=== PATIENT | male | born 1980 | race African-American/Black ===

== ENCOUNTER 2016-07-19 12:14 | Emergency (ER) | payer OTHER ==
[2016-07-19 12:25] VITALS: BP 140/72
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
== END 2016-07-19 13:35 | disposition home or self-care (01) ==
LOC: UCEAST 12:14
DX: H10.9 Unspecified conjunctivitis (principal); R60.9 Edema, unspecified; R19.7 Diarrhea, unspecified; F17.210 Nicotine dependence, cigarettes, uncomplicated
CPT/HCPCS: 93005; 99212; G0463

== ENCOUNTER 2017-05-11 11:44 | Emergency (ER) | payer OTHER ==
[2017-05-11 13:14] VITALS: BP 150/79
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
== END 2017-05-11 13:37 | disposition home or self-care (01) ==
LOC: UCEAST 11:44
DX: M79.1 Myalgia (principal); R53.83 Other fatigue; Z20.828 Contact with and (suspected) exposure to other viral communicable diseases; Z71.6 Tobacco abuse counseling; F17.210 Nicotine dependence, cigarettes, uncomplicated
CPT/HCPCS: 87502; 99212; G0463

== ENCOUNTER 2018-09-01 16:28 | Emergency (ER) | payer MEDICAID, OTHER ==
--- OUTSIDE RECORDS SUMMARY | 2018-09-01 18:59 | XMS REPORT | Continuity of Care Document ---
:1980 External Reference #:[id number] Author Name Navin Ovalles M.D. Address [address] [facility] [address] [place] [address] Care Team Providers Name Role Phone HCP/LW on file Primary Care Physician Unavailable Payers Date Identification Numbers Payment Provider Subscriber Expires: 2015 Policy Number: [id number] Medicaid Phillip Charles Group Name: Active Medicaid [address] [facility] PayID: [id number] [place] [address] Expires: 2018 Policy Number: [id number] Medicaid Phillip Charles PayID: [id number] [address] [place] [address] Effective: 2018 Policy Number: [id number] [facility] Phillip Charles PayID: [id number] [address] [place] [address] Advance Directives Description No Information Available Problems Active Problems Provider Date Opioid dependence Navin Ovalles M.D. Onset: 03/03/2014 Dysthymia Navin Ovalles M.D. Onset: 03/03/2014 Anxiety state Navin Ovalles M.D. Onset: 03/03/2014 Opioid dependence, uncomplicated Navin Ovalles M.D. Onset: 01/23/2015 Dysthymic disorder Navin Ovalles M.D. Onset: 01/23/2015 Bipolar disorder Navin Ovalles M.D. Onset: 01/23/2017 Low back pain Navin Ovalles M.D. 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 w/ hope of getting FT employment w/ them in the future Tobacco Use Reviewed: current cigarette 1/2 ppd; at peak 02/08/18 smoker smoked ~1.5ppd Smoking Status Reviewed: current cigarette 1/2 ppd; at peak 02/08/18 smoker smoked ~1.5ppd ETOH Use Denies alcohol use Recreational Drug Use Denies Drug Use Exercise Type/Frequency Exercises rarely Seat Belt/Car Seat Seat Belt Use - Yes Currently Active Patient is currently sexually active Age 1st Or[place]inda 16 Years Old Additional Info Sexual preference is women Allergies, Adverse Reactions, Alerts Description No Known Drug Allergies Medications Active Medications SIG Qnty Indications Ordering Provider Date Gabapentin Take 1 And 1/2 120tabs F41.9 Navin Ovalles, 05/25/2018 800mg Tablets By Mouth M.D. Tablets In The Morning And Evening And 1 Tab In Mid Day For Anxiety G89.4 M54.5 Suboxone 1 by mouth 2x/day; 60units F11.20 Navin Ovalles, 10/12/2017 8-2mg Film suboxone prescriber# Latrice [id number]; rx due 08/08/18 Nicotine Polacrilex chew 1 piece every 200units F17.210 Navin Ovalles, 08/03/2017 1-2hrs for 6wks then M.D. 4mg Gum every 2 to 4 hours x3wks then q4-8h x3wks then d/c; use at least 9/d the 1st 6wks History Medications Azithromycin 2 tabs day one and 6tabs Navin Ovalles, 03/25/2018 - 250mg 1 tab days 2-5 M.D. 03/31/2018 Tablets Symbicort 2 puffs 2x/day; 1sample J20.9 Navin Ovalles, 03/10/2018 - gargle after use; M.D. 03/25/2018 160-4.5mcg/Act for cough Aerosol PT For Low Back Pain please evaluate M54.5 Navin Ovalles, 10/13/2017 - W/ R Sided Radiculo and Latrice kirkland 12/07/2017 instruct in hep, modalities as needed; (see MRI from 09/25/17) M54.16 Methylprednisolone take as 1pack M54.5 Silcokhurram, 10/13/2017 - 4mg TBPK directed; for Latrice Holden 10/19/2017 back pain Buprenorphine 1 tablet 60tabs F11.20 Josr, 10/11/2017 - HCL-Naloxone HCL dissolved in Latrice Holden 10/12/2017 8-2mg Tablets mouth 2x/day; Sub prescriber# [id number] Methylprednisolone take as directed 1pack M54.5 Josr, 09/18/2017 - 4mg TBPK Latrice Holden 09/24/2017 M54.16 Gabapentin 1 by mouth three 90tabs F41.9 Navin Ovalles 09/11/2017 - 800mg times a day; for M.DMukesh 05/25/2018 Tablets anxiety and pain G89.4 M54.5 Baclofen 1 tab by mouth up to 30tabs M54.5 Josr, 08/10/2017 - 10mg 3x/day, as needed Latrice Holden 09/18/2017 Tablets for muscle spasms in back; may inc to 2 tabs 3x/day if needed starting on day 4 PT For Low Back please evaluate and M54.5 Josr, 08/10/2017 - Pain treat, modalities as Latrice Holden 10/12/2017 needed, instruct in hep Diclofenac Sodium take one by mouth up 30tabs M25.50 Josr, 08/03/2017 - ER to once/day, as Latrice Holden 09/11/2017 100mg Tablets ER needed, for joint 24HR pains; take with food Latuda 1 tablet daily with 30tabs F31.81 Andreeacokhurram, 04/28/2017 - 40mg Tablets a meal (at least 350 Latrice Holden 05/28/2017 calories); for bipolar depression Latuda 1 tablet daily with F31.81 Silcoff, 03/10/2017 - 20mg Tablets a meal (at least 350 Latrice Holden 04/28/2017 calories); for bipolar depression Quetiapine Fumarate 1 by mouth before 60tabs F31.81 Josr, 01/28/2017 - bed on 1st day then Latrice Holden 02/19/2017 50mg Tablets increase to 2 pills every night; for mood Latuda 1 tablet daily with 30tabs F31.81 Silcoff, 01/23/2017 - 20mg Tablets a meal (at least 350 Latrice Holden 01/28/2017 calories); for bipolar depression Latuda 1 tablet daily with 30tabs F34.1 Silcoff, 01/02/2017 - 20mg Tablets a meal (at least 350 Latrice Holden 01/03/2017 calories); for bipolar depression Valproic Acid 1 by mouth 2x/d x1wk 120caps F34.1 Andreeacokhurram, 12/03/2016 - 250mg then 1 by mouth Latrice Holden 12/23/2016 Capsules every morning and 2 qevening x1wk then 2 by mouth twice a day; for mood stabilization Compression use daily; put on in 2Pair I87.2 Josr, 12/03/2016 - Stockings 20-30 mm in the morning and Latirce Holden 05/28/2017 HG off at bedtime; Knee High please also measure for the stockings. Fluocinonide apply to affected 60gm R21 Silcokhurram, 10/27/2016 - 0.05% areas on lower legs Latrice Holden 05/28/2017 Cream up to 2x/day as needed; for itchy rash Furosemide 1 by mouth in the 30tabs I87.2 Silcokhurram, 10/27/2016 - 20mg morning if needed Latrice Holden 05/28/2017 Tablets for leg swelling Valproic Acid 1 by mouth 2x/d x1wk 120caps F34.1 Silcokhurram, 07/28/2016 - 250mg then 1 by mouth Latrice Holden 08/26/2016 Capsules every morning and 2 qevening x1wk then 2 by mouth twice a day; for mood stabilization Omeprazole take one capsule by 30caps R12 Josr, 06/27/2016 - 20mg mouth every day for Latrice Holden 02/07/2018 Sejal PULIDO acid reflux/heartburn K21.9 Suboxone 1 by mouth 2x/day; 60units F11.20 Josr, 06/03/2016 - 8-2mg Film may fill rx on Latrice Holden 10/11/2017 10/10/17; prescriber# [id number] Escitalopram Oxalate take 1 tablet by 30tabs F34.1 Josr, 05/02/2016 - mouth once daily Latrice Holden 06/21/2017 20mg Tablets for mood F31.81 Escitalopram Oxalate 1.5 tablets by 45tabs F34.1 Navin Ovalles, 2015 - mouth every day M.D. 05/02/2016 10mg Tablets for mood Diclofenac Sodium take one tablet Daniel Noel 2016 - 75mg by mouth twice a M.D. 10/26/[address] day as needed for joint pains Famotidine 1 by mouth every 30tabs R12 Navin Ovalles, 01/25/2016 - 40mg Tablets night for M.D. 06/27/2016 heartburn K21.9 Escitalopram Oxalate 1 by mouth every 30tabs F34.1 Navin Ovalles, 2015 - day for mood M.D. 04/04/2016 10mg Tablets Escitalopram Oxalate 1/2 by mouth 15tabs F34.1 Navin Ovalles, 2015 - every day; for M.D. 01/25/2016 10mg Tablets mood Bupropion HCL ER (XL) take 1 tablet by 30tabs F34.1 Navin Ovalles, 10/21 - mouth every M.D. 05/28/2017 300mg Tablets ER 24HR morning F41.9 F31.81 Escitalopram Oxalate 1/2 by mouth 30tabs F34.1 Navin Ovalles, 2015 - every day for 1 M.D. 11/20/2015 10mg Tablets week then 1 tablet daily; for mood Bupropion HCL ER (XL) take 2 tablets 60tabs F34.1 Navin Ovalles, 2015 - by mouth every M.D. 10/22/2015 300mg Tablets ER 24HR morning; for mood F41.9 Citalopram take 1/2 tablet F34.1 Navin Ovalles, 08/21/2015 - Hydrobromide by mouth every M.D. 08/28/2015 20mg day for 1 week Tablets then stop it Bupropion HCL ER (XL) take 1 tablet by 30tabs F34.1 Navin Ovalles, 08/20 - mouth every M.D. 09/19/2015 150mg Tablets ER 24HR morning (to add to the 300mg pills); for mood Citalopram take 1 tablet 30tabs F34.1 Navin Ovalles, 07/18/2015 - Hydrobromide daily for mood M.DMukesh 08/21/2015 20mg Tablets Bupropion HCL ER (XL) take 1 tablet by 30tabs F34.1 Navin Ovalles, 06/20 - mouth every M.D. 09/19/2015 300mg Tablets ER 24HR morning; for mood F41.9 Bupropion HCL ER take 1 tablet 30tabs F34.1 Navin Ovalles, 05/15/2015 - (XL) every morning; M.D. 06/20/2015 150mg Tablets for mood ER 24HR F41.9 Polyethylene Glycol use 1 cap full in 8 527gm K59.01 Josr, 03/20/2015 - 3350 oz of water every Latrice Holden 10/26/2016 3350NF Powder day; titrate as needed with goal of having 1-2 soft BMs/day; for constipation Citalopram take one tablet by 30tabs F34.1 Josr, 12/27/2014 - Hydrobromide mouth every day for Latrice Holden 07/18/2015 40mg mood Tablets Suboxone 1 1/2 films by 45units F11.20 Josr, 11/27/2014 - 8-2mg Film mouth every day Latrice Holden 06/03/2016 (split into 2-3 doses/day); suboxone prescriber# [id number]; rx due 05/10/16 Citalopram take 1.5 tablets by 45tabs 300.4 Josr, 10/25/2014 - Hydrobromide mouth every day for Latrice Holden 12/27/2014 20mg mood Tablets Suboxone 1/2 film by mouth 30units 304.00 Silcokhurram, 08/28/2014 - 8-2mg Film 2x/day; due 10/29/14 Latrice Holden 11/27/2014 suboxone prescriber# [id number] Buprenorphine 1/2 tablet by mouth 30tabs 304.00 Silcokhurram, 07/31/2014 - HCL-Naloxone HCL 2x/day; suboxone Latrice Holden 08/28/2014 prescriber 8-2mg Tablets Sub #[id number] Suboxone 1/2 film by mouth 30units 304.00 Silcokhurram, 05/31/2014 - 8-2mg Film every morning and Latrice Holden 07/31/2014 again in afternoon; suboxone prescriber #[id number]; due 07/01/14 Citalopram 1 by mouth every 30tabs 300.4 Silcokhurram, 05/31/2014 - Hydrobromide day for mood Latrice Holden 10/25/2014 20mg Tablets Viibryd 1 by mouth every 14tabs 300.00 Josr, 03/02/2014 - 20mg Tablets day; (This is a 2wk Latrice Holden 03/17/2014 Rx as a bridge until you can get another Rx from your psychiatric provider) 300.4 Suboxone 1 by mouth every 30units 304.00 Navin Ovalles, 02/17/2014 - 8-2mg morning; suboxone Latrice 05/31/2014 Film prescriber #[id number] Suboxone 1 by mouth every Unknown 02/07/2014 - 8-2mg morning 02/16/2014 Film Viibryd 1 tablet daily for 14tabs 300.00 Navin Ovalles, 02/07/2014 - 10mg mood; (This Rx is a M.DMukesh 03/02/2014 Tablets short term supply; further refills need to come from your psychiatric provider) 300.4 Gabapentin take one tablet 90tabs F41.9 Navin Ovalles, 02/07/2014 - 600mg by mouth three M.D. 09/11/2017 Tablets times daily for anxiety and pain G89.4 M54.5 Viibryd 1 by mouth every day. 300.00 Unknown - 03/30/2014 40mg Tablets 300.4 Medications Administered in Office Medication SIG Qnty Indications Ordering Provider Date Toradol 15MG. Navin Ovalles M.D. 09/18/2017 Injection SC/Im Injections Navin Ovalles M.D. 09/18/2017 Injection Immunizations CPT Code Status Date Vaccine Lot # [id number] Given 01/06/2018 Influenza Virus Vaccine, Quadrivalent, Split, [id number] Preservative Free 27462 Given 12/25/2016 Influenza Virus Vaccine, Quadrivalent, Split, [id number] Preservative Free 07497 Given 04/04/2016 Influenza Virus Vaccine, Quadrivalent, Split, [id number] Preservative Free 52289 Given 04/17/2015 Influenza Virus Vaccine, Quadrivalent, Split, [id number] Preservative Free 33654 Given 03/03/2014 Adacel or Boostrix, TDaP [id number] 67427 Given 03/03/2014 Flu, Split Virus [id number] Refused 02/27/2016 Influenza Virus Vaccine, Quadrivalent, Split, Preservative Free Vital Signs Date Vital Result Comment 08/03/2018 10:25am BP Systolic 130 mmHg BP Diastolic 70 mmHg Height 74.5 inches 6'2.50" with shoes Weight 253.00 lb with shoes BMI (Body Mass Index) 32.0 kg/m2 06/30/2018 3:57pm BP Systolic 126 mmHg BP Diastolic 78 mmHg Weight 260.00 lb w/work boots 05/25/2018 4:49pm BP Systolic 128 mmHg BP Diastolic 76 mmHg Weight 257.00 lb w/boots 04/13/2018 4:39pm BP Systolic 130 mmHg BP Diastolic 78 mmHg Weight 253.50 lb 03/10/2018 4:04pm BP Systolic 124 mmHg BP Diastolic 76 mmHg Heart Rate 80 /min reg Respiratory Rate 12 /min not laboured Body Temperature 98.5 F Height 74.50 inches 6'2.50" Weight 246.00 lb w/shoes BMI (Body Mass Index) 31.2 kg/m2 02/08/2018 4:36pm BP Systolic 108 mmHg BP Diastolic 80 mmHg 01/06/2018 3:53pm BP Systolic 134 mmHg BP Diastolic 70 mmHg Weight 255.00 lb 12/07/2017 4:54pm BP Systolic 128 mmHg BP Diastolic 84 mmHg Weight 257.00 lb 11/09/2017 4:49pm BP Systolic 110 mmHg BP Diastolic 70 mmHg Weight 260.00 lb w/shoes 10/13/2017 2:40pm BP Systolic 126 mmHg BP Diastolic 72 mmHg Weight 261.00 lb w/shoes 09/18/2017 11:53am BP Systolic 130 mmHg BP Diastolic 80 mmHg Weight 261.00 lb 09/11/2017 3:06pm BP Systolic 132 mmHg BP Diastolic 70 mmHg Height 74.50 inches 6'2.50" with shoes Weight 259.00 lb with shoes BMI (Body Mass Index) 32.8 kg/m2 08/10/2017 5:04pm BP Systolic 138 mmHg BP Diastolic 84 mmHg Weight 274.00 lb with boots 08/03/2017 3:41pm BP Systolic 122 mmHg BP Diastolic 70 mmHg Weight 274.00 lb 06/26/2017 11:44am BP Systolic 126 mmHg BP Diastolic 80 mmHg Weight 271.00 lb w/boots and coat 05/29/2017 2:17pm BP Systolic 128 mmHg BP Diastolic 78 mmHg Weight 269.00 lb w/boots 04/28/2017 2:46pm BP Systolic 124 mmHg BP Diastolic 80 mmHg Weight 267.00 lb w/shoes 03/24/2017 1:59pm BP Systolic 128 mmHg BP Diastolic 80 mmHg Height 75 inches 6'3" with boots Weight 266.00 lb with boots BMI (Body Mass Index) 33.2 kg/m2 02/20/2017 12:00pm BP Systolic 122 mmHg BP Diastolic 84 mmHg Heart Rate 80 /min reg Respiratory Rate 12 /min not laboured Weight 260.00 lb 01/23/2017 11:17am BP Systolic 132 mmHg BP Diastolic 86 mmHg Weight 260.00 lb 01/02/2017 5:22pm BP Systolic 146 mmHg BP Diastolic 88 mmHg Weight 261.00 lb 12/25/2016 4:07pm BP Systolic 130 mmHg BP Diastolic 70 mmHg Weight 260.00 lb w/shoes 12/03/2016 4:04pm BP Systolic 136 mmHg BP Diastolic 88 mmHg Weight 264.00 lb 10/27/2016 3:54pm BP Systolic 140 mmHg BP Diastolic 60 mmHg Weight 260.00 lb w/shoes 09/26/2016 4:41pm BP Systolic 132 mmHg BP Diastolic 88 mmHg Weight 264.00 lb with sneakers 08/26/2016 3:55pm BP Systolic 128 mmHg BP Diastolic 76 mmHg Weight 268.00 lb w/shoes 07/28/2016 1:53pm BP Systolic 130 mmHg BP Diastolic 80 mmHg Height 75 inches 6'3" w/shoes Weight 265.00 lb w/shoes BMI (Body Mass Index) 33.1 kg/m2 06/27/2016 2:06pm BP Systolic 148 mmHg BP Diastolic 72 mmHg 06/03/2016 2:31pm BP Systolic 138 mmHg BP Diastolic 82 mmHg Weight 263.00 lb 05/02/2016 3:59pm BP Systolic 124 mmHg BP Diastolic 82 mmHg Weight 263.00 lb with sneakers 04/04/2016 4:20pm BP Systolic 122 mmHg BP Diastolic 78 mmHg Weight 257.00 lb 02/27/2016 5:18pm BP Systolic 120 mmHg BP Diastolic 64 mmHg Weight 254.00 lb w/shoes 01/25/2016 5:01pm BP Systolic 120 mmHg BP Diastolic 76 mmHg Height 75 inches 6'3" w/shoes Weight 250.00 lb w/shoes BMI (Body Mass Index) 31.2 kg/m2 12/19/2015 4:03pm BP Systolic 122 mmHg BP Diastolic 76 mmHg Weight 248.00 lb w/shoes 11/20/2015 5:28pm BP Systolic 118 mmHg BP Diastolic 80 mmHg Weight 244.00 lb with sneakers 10/22/2015 4:38pm BP Systolic 120 mmHg BP Diastolic 78 mmHg Weight 243.00 lb with sneakers 09/19/2015 10:03am BP Systolic 116 mmHg BP Diastolic 76 mmHg Weight 244.00 lb w/shoes 08/21/2015 12:19pm BP Systolic 114 mmHg BP Diastolic 76 mmHg Weight 247.00 lb 07/18/2015 11:44am BP Systolic 128 mmHg BP Diastolic 72 mmHg Height 75 inches 6'3" w/shoes Weight 248.00 lb w/shoes BMI (Body Mass Index) 31.0 kg/m2 06/20/2015 12:15pm BP Systolic 130 mmHg BP Diastolic 76 mmHg Weight 242.00 lb w/shoes 05/15/2015 9:41am BP Systolic 126 mmHg BP Diastolic 78 mmHg 04/17/2015 10:06am BP Systolic 120 mmHg BP Diastolic 68 mmHg Weight 237.00 lb w/shoes 03/20/2015 11:27am BP Systolic 112 mmHg BP Diastolic 64 mmHg 02/20/2015 12:10pm BP Systolic 126 mmHg BP Diastolic 60 mmHg Height 75 inches 6'3" w/shoes Weight 235.00 lb w/shoes BMI (Body Mass Index) 29.4 kg/m2 01/23/2015 11:14am BP Systolic 125 mmHg BP Diastolic 62 mmHg Weight 231.00 lb 12/27/2014 2:48pm BP Systolic 130 mmHg BP Diastolic 76 mmHg Weight 226.00 lb 11/27/2014 11:21am BP Systolic 130 mmHg BP Diastolic 82 mmHg Weight 223.00 lb with sneakers 10/25/2014 9:20am BP Systolic 128 mmHg BP Diastolic 80 mmHg Weight 228.00 lb with sneakers 09/25/2014 9:18am BP Systolic 116 mmHg BP Diastolic 60 mmHg Weight 223.00 lb shoes on 08/28/2014 1:20pm BP Systolic 132 mmHg BP Diastolic 80 mmHg Weight 214.00 lb shoes on 07/31/2014 3:10pm BP Systolic 122 mmHg BP Diastolic 70 mmHg Height 74.50 inches 6'2.50" Weight 215.00 lb BMI (Body Mass Index) 27.2 kg/m2 06/28/2014 10:20am BP Systolic 106 mmHg BP Diastolic 64 mmHg Weight 212.00 lb 05/31/2014 12:05pm BP Systolic 134 mmHg BP Diastolic 80 mmHg Weight 213.00 lb shoes & jacket on 05/02/2014 11:33am BP Systolic 130 mmHg BP Diastolic 90 mmHg Weight 209.00 lb 03/31/2014 3:08pm BP Systolic 120 mmHg BP Diastolic 80 mmHg Weight 210.00 lb 03/17/2014 5:14pm BP Systolic 140 mmHg BP Diastolic 80 mmHg 03/03/2014 2:49pm BP Systolic 136 mmHg BP Diastolic 66 mmHg Body Temperature 98.4 F Weight 208.00 lb shoes on 02/17/2014 4:12pm BP Systolic 132 mmHg BP Diastolic 90 mmHg Weight 206.00 lb shoes on 02/08/2014 3:24pm BP Systolic 138 mmHg BP Diastolic 60 mmHg Heart Rate 76 /min reg Respiratory Rate 12 /min not laboured Height 73.25 inches 6'1.25" Weight 202.00 lb BMI (Body Mass Index) 26.5 kg/m2 Results Test Date Facility Test Result H/L Range Note Laboratory test 02/22/2018 [facility] C Difficile B SEE RESULT 1 finding [phone] PCR BELOW CBC Auto Diff 02/15/2018 [facility] White Blood 6.7 10^3/uL N 3.5- 10.8 [phone] Count Red Blood Count 4.27 10^6/uL N 4.00-5.40 Hemoglobin 13.4 g/dL Low 14.0-18.0 Hematocrit 39 % Low 42-52 Mean Corpuscular Volume 91 fL N 80-94 Mean Corpuscular Hemoglobin 31 pg N 27-31 Mean Corpuscular HGB Conc 34 g/dL N 31-36 Red Cell Distribution Width 13 % N 10.5-15 Platelet Count 249 10^3/uL N 150-450 Mean Platelet Volume 8.7 um3 N 7.4-10.4 Abs Neutrophils 3.7 10^3/uL N 1.5-7.7 Abs Lymphocytes 2.3 10^3/uL N 1.0-4.8 Abs Monocytes 0.5 10^3/uL N 0-0.8 Abs Eosinophils 0.1 10^3/uL N 0-0.6 Abs Basophils 0 10^3/uL N 0-0.2 Abs Nucleated RBC 0 10^3/uL Granulocyte % 55.8 % N 38-83 Lymphocyte % 34.1 % N 25-47 Monocyte % 7.2 % High 0-7 Eosinophil % 2.2 % N 0-6 Basophil % 0.7 % N 0-2 Nucleated Red Blood Cells % 0 Comp Metabolic Panel 02/15/2018 [facility] Sodium 141 mmol/L N 135- 145 [phone] Potassium 4.3 mmol/L N 3.5-5.0 Chloride 106 mmol/L N 101-111 Co2 Carbon Dioxide 29 mmol/L N 22-32 Anion Gap 6 mmol/L N 2-11 Glucose 81 mg/dL N 70-100 Blood Urea Nitrogen 12 mg/dL N 6-24 Creatinine 0.83 mg/dL N 0.67-1.17 BUN/Creatinine Ratio 14.5 N 8-20 Calcium 9.7 mg/dL N 8.6-10.3 Total Protein 6.5 g/dL N 6.4-8.9 Albumin 4.3 g/dL N 3.2-5.2 Globulin 2.2 g/dL N 2-4 Albumin/Globulin Ratio 2.0 N 1-3 Total Bilirubin 0.30 mg/dL N 0.2-1.0 Alkaline Phosphatase 96 U/L N 34-104 Alt 25 U/L N 7-52 Ast 24 U/L N 13-39 Egfr Non- 103.7 >60 Egfr 125.5 >60 2 Laboratory test 02/15/2018 [facility] C Reactive Protein 7.57 mg/L N <8.01 finding [phone] Erythrocyte Sed Rate 19 mm/Hr High 0-14 TSH (Thyroid Stim Horm) 4.45 mcIU/mL N 0.34-5.60 Urine Drug Screen Inhouse 02/08/2018 In House Ua Cocaine - Ua Opiates - Ua Amphetamines - Urine Methanphetamines - Urine Benzodiazepines QN [place] - Urine Oxycodone QL - Rapid Influenza A 05/11/2017 [facility] Influenza A NEGATIVE Negative 3 & B Molecular [phone] Molecular Influenza B Molecular NEGATIVE Negative Urine Drug Screen Inhouse 04/28/2017 In House Ua Cocaine - Ua Opiates - Ua Amphetamines - Urine Methanphetamines - Urine Benzodiazepines QN [place] - Urine Oxycodone QL - Urine Drug Screen Inhouse 01/23/2017 In House Ua Cocaine - Ua Opiates - Ua Amphetamines - Urine Methanphetamines - Urine Benzodiazepines QN [place] - Urine Oxycodone QL - Basic Metabolic Panel 11/07/2016 [facility] Sodium 138 mmol/L N 133- 145 [phone] Potassium 3.9 mmol/L N 3.5-5.0 Chloride 101 mmol/L N 101-111 Co2 Carbon Dioxide 31 mmol/L N 22-32 Anion Gap 6 mmol/L N 2-11 Glucose 115 mg/dL High 70-100 Blood Urea Nitrogen 11 mg/dL N 6-24 Creatinine 0.81 mg/dL N 0.67-1.17 BUN/Creatinine Ratio 13.6 N 8-20 Calcium 9.3 mg/dL N 8.6-10.3 Egfr Non- 107.2 N >60 Egfr 137.9 N >60 4 CBC Auto Diff 11/07/2016 [facility] White Blood Count 5.7 10^3/uL N 3.5-10.8 [phone] Red Blood Count 4.12 10^6/uL N 4.0-5.4 Hemoglobin 13.0 g/dL Low 14.0-18.0 Hematocrit 38 % Low 42-52 Mean Corpuscular Volume 93 fL N 80-94 Mean Corpuscular Hemoglobin 31 pg N 27-31 Mean Corpuscular HGB Conc 34 g/dL N 31-36 Red Cell Distribution Width 13 % N 10.5-15 Platelet Count 215 10^3/uL N 150-450 Mean Platelet Volume 9 um3 N 7.4-10.4 Abs Neutrophils 3.1 10^3/uL N 1.5-7.7 Abs Lymphocytes 2.1 10^3/uL N 1.0-4.8 Abs Monocytes 0.3 10^3/uL N 0-0.8 Abs Eosinophils 0.1 10^3/uL N 0-0.6 Abs Basophils 0 10^3/uL N 0-0.2 Abs Nucleated RBC 0 10^3/uL N Granulocyte % 54.9 % N 38-83 Lymphocyte % 37.3 % N 25-47 Monocyte % 5.3 % N 1-9 Eosinophil % 1.8 % N 0-6 Basophil % 0.7 % N 0-2 Nucleated Red Blood Cells % 0.1 N Laboratory test 10/10/2016 [facility] B-Type Natriuretic 28 pg/mL N 5 finding [phone] Peptide BNP TSH (Thyroid Stim Horm) 1.40 mcIU/mL N 0.34-5.60 Comp Metabolic Panel 10/10/2016 [facility] Sodium 141 mmol/L N 133- 145 [phone] Potassium 4.6 mmol/L N 3.5-5.0 Chloride 106 mmol/L N 101-111 Co2 Carbon Dioxide 32 mmol/L N 22-32 Anion Gap 3 mmol/L N 2-11 Glucose 115 mg/dL High 70-100 Blood Urea Nitrogen 10 mg/dL N 6-24 Creatinine 0.83 mg/dL N 0.67-1.17 BUN/Creatinine Ratio 12.0 N 8-20 Calcium 9.7 mg/dL N 8.6-10.3 Total Protein 6.4 g/dL N 6.4-8.9 Albumin 4.1 g/dL N 3.2-5.2 Globulin 2.3 g/dL N 2-4 Albumin/Globulin Ratio 1.8 N 1-3 Total Bilirubin 0.30 mg/dL N 0.2-1.0 Alkaline Phosphatase 98 U/L N 34-104 Alt 37 U/L N 7-52 Ast 26 U/L N 13-39 Egfr Non- 104.3 N >60 Egfr 134.1 N >60 6 Urine Micro Inhouse 09/26/2016 In House Ua WBC - 7 Ua RBC - Ua Casts - Ua Epi - Ua Other - Ua Glucose - Ua Bilirubin 1+ Ua Ketones - Ua Specific [place] 1.030 Ua Blood - Ua PH 6.0 Ua Protein tr Ua Urobilinogen - Ua Nitrite - Ua Leukocytes - Basic Metabolic Panel 09/01/2016 [facility] Sodium 138 mmol/L N 133- 145 [phone] Potassium 3.8 mmol/L N 3.5-5.0 Chloride 101 mmol/L N 101-111 Co2 Carbon Dioxide 31 mmol/L N 22-32 Anion Gap 6 mmol/L N 2-11 Glucose 88 mg/dL N 70-100 Blood Urea Nitrogen 12 mg/dL N 6-24 Creatinine 0.89 mg/dL N 0.67-1.17 BUN/Creatinine Ratio 13.5 N 8-20 Calcium 9.5 mg/dL N 8.6-10.3 Egfr Non- 96.2 N >60 Egfr 123.7 N >60 8 Laboratory test 09/01/2016 [facility] Vitamin B12 966 pg/mL High 180- 914 9 finding [phone] Folic Acid (Folate) 11.37 ng/mL N >3.99 Iron & Iron Binding Capacity 09/01/2016 [facility] Iron 54 g/dL N 50-212 [phone] Unsaturated Iron Binding 318 g/dL N Total Iron Binding Capacity 372 g/dL N 250-450 % Iron Saturation 15 % N 15-55 Laboratory test 09/01/2016 [facility] Ferritin 41.9 ng/mL N 24-336 finding [phone] CBC Auto Diff 09/01/2016 [facility] White Blood 6.4 10^3/uL N 3.5- 10.8 [phone] Count Red Blood Count 4.26 10^6/uL N 4.0-5.4 Hemoglobin 13.0 g/dL Low 14.0-18.0 Hematocrit 39 % Low 42-52 Mean Corpuscular Volume 92 fL N 80-94 Mean Corpuscular Hemoglobin 31 pg N 27-31 Mean Corpuscular HGB Conc 33 g/dL N 31-36 Red Cell Distribution Width 13 % N 10.5-15 Platelet Count 218 10^3/uL N 150-450 Mean Platelet Volume 10 um3 N 7.4-10.4 Abs Neutrophils 3.5 10^3/uL N 1.5-7.7 Abs Lymphocytes 2.1 10^3/uL N 1.0-4.8 Abs Monocytes 0.4 10^3/uL N 0-0.8 Abs Eosinophils 0.1 10^3/uL N 0-0.6 Abs Basophils 0.3 10^3/uL High 0-0.2 Abs Nucleated RBC 0 10^3/uL N Granulocyte % 54.8 % N 38-83 Lymphocyte % 32.9 % N 25-47 Monocyte % 6.1 % N 1-9 Eosinophil % 2.0 % N 0-6 Basophil % 4.2 % High 0-2 Nucleated Red Blood Cells % 0 N Laboratory test 08/26/2016 In House Occult Blood, F I negative finding T Liver Function Panel 07/28/2016 [facility] Total Protein 6.7 g/dL N 6.4-8.9 [phone] Albumin 4.3 g/dL N 3.2-5.2 Globulin 2.4 g/dL N 2-4 Albumin/Globulin Ratio 1.8 N 1-3 Total Bilirubin 0.40 mg/dL N 0.2-1.0 Direct Bilirubin 0.10 mg/dL N 0.03-0.18 Indirect Bilirubin 0.3 mg/dL N 0.3-1.0 Alkaline Phosphatase 93 U/L N 34-104 Alt 42 U/L N 7-52 Ast 33 U/L N 13-39 CBC Auto Diff 07/28/2016 [facility] White Blood Count 6.9 10^3/uL N 3.5-10.8 [phone] Red Blood Count 4.18 10^6/uL N 4.0-5.4 Hemoglobin 12.9 g/dL Low 14.0-18.0 Hematocrit 38 % Low 42-52 Mean Corpuscular Volume 91 fL N 80-94 Mean Corpuscular Hemoglobin 31 pg N 27-31 Mean Corpuscular HGB Conc 34 g/dL N 31-36 Red Cell Distribution Width 13 % N 10.5-15 Platelet Count 231 10^3/uL N 150-450 Mean Platelet Volume 9 um3 N 7.4-10.4 Abs Neutrophils 3.7 10^3/uL N 1.5-7.7 Abs Lymphocytes 2.6 10^3/uL N 1.0-4.8 Abs Monocytes 0.4 10^3/uL N 0-0.8 Abs Eosinophils 0.1 10^3/uL N 0-0.6 Abs Basophils 0.1 10^3/uL N 0-0.2 Abs Nucleated RBC 0 10^3/uL N Granulocyte % 53.9 % N 38-83 Lymphocyte % 37.2 % N 25-47 Monocyte % 6.4 % N 1-9 Eosinophil % 1.7 % N 0-6 Basophil % 0.8 % N 0-2 Nucleated Red Blood Cells % 0 N Urine Drug Screen Inhouse 07/18/2015 In House Ua Cocaine - Ua Opiates - Ua Amphetamines - Urine Methanphetamines - Urine Benzodiazepines QN [place] - Urine Oxycodone QL - Urine Drug Screen Inhouse 04/17/2015 In House Ua Cocaine - Ua Opiates - Ua Amphetamines - Urine Methanphetamines - Urine Benzodiazepines QN [place] - Urine Oxycodone QL - Laboratory test 04/17/2015 [facility] Nesha (Antinuclear Negative N Negative finding [phone] Antibodies) CBC Auto Diff 04/17/2015 [facility] White Blood Count 5.6 10^3/uL N 3.5-10.8 [phone] Red Blood Count 4.64 10^6/uL N 4.0-5.4 Hemoglobin 14.4 g/dL N 14.0-18.0 Hematocrit 43 % N 42-52 Mean Corpuscular Volume 93 fL N 80-94 Mean Corpuscular Hemoglobin 31 pg N 27-31 Mean Corpuscular HGB Conc 33 g/dL N 31-36 Red Cell Distribution Width 13 % N 10.5-15 Platelet Count 243 10^3/uL N 150-450 Mean Platelet Volume 9 um3 N 7.4-10.4 Abs Neutrophils 3.4 10^3/uL N 1.5-7.7 Abs Lymphocytes 1.7 10^3/uL N 1.0-4.8 Abs Monocytes 0.4 10^3/uL N 0-0.8 Abs Eosinophils 0.1 10^3/uL N 0-0.6 Abs Basophils 0 10^3/uL N 0-0.2 Abs Nucleated RBC 0.01 10^3/uL N Granulocyte % 60.7 % N 38-83 Lymphocyte % 30.1 % N 25-47 Monocyte % 6.8 % N 1-9 Eosinophil % 1.8 % N 0-6 Basophil % 0.6 % N 0-2 Nucleated Red Blood Cells % 0.2 N Laboratory test 04/17/2015 [facility] C Reactive 4.66 mg/L N < 5.00 10 finding [phone] Protein Erythrocyte Sed Rate 16 mm/Hr High 0-14 Rheumatoid Factor <15 IU/mL N <15 11 Urine Drug Screen Inhouse 03/20/2015 In House Ua Cocaine NEGATIVE Ua Opiates NEGATIVE Ua Amphetamines NEGATIVE Urine Methanphetamines NEGATIVE Urine Benzodiazepines QN [place] NEGATIVE Urine Oxycodone QL NEGATIVE Urine Drug Screen Inhouse 01/23/2015 In House Ua Cocaine - Ua Opiates - Ua Amphetamines - Urine Methanphetamines - Urine Benzodiazepines QN [place] - Urine Oxycodone QL - Laboratory 06/28/2014 [facility] Hepatitis C Undetected N Undetected 12 test [phone] Rna IU/mL finding Quantitative Laboratory 06/20/2014 [facility] Hepatitis C Low Abnormal Nonreactive 13 test [phone] Antibody Reactive finding Throat-Beta 05/14/2014 [facility] Throat Beta negative 14 Strept [phone] Strep Culture Urine Drug 02/08/2014 In House Urine THC - Screen Screen Inhouse Ua Cocaine - Ua Opiates - Ua Amphetamines - Urine Methanephrine Random - Urine Phenyclidine GC/MS - Urine Mdma QN Random - Ua Barbiturates - Urine Benzodiazepines QN [place] - Ua Methadone - Urine Tricyclc Antidepress RND - Urine Oxycodone QL - Laboratory test 02/05/2011 [facility] Hepatitis C Virus Negative Negative 15 finding [phone] AB MML Hepatitis B Surface Ag MML Negative Negative 16 Quantiferon Gold TB 02/05/2011 [facility] Quantiferon Gold TB Negative () [phone] Quantiferon Gold TB 0.01 IU/mL () 17 Manual Differential 02/05/2011 [facility] Polysegmented Neutrophil 80 % 38-83 [phone] Lymphocyte 14 % Low 25-47 Monocyte 5 % 0-13 Eosinophil 1 % 0-6 Absolute Neutrophil Count 5.2 RBC Morphology NORMAL CBC Auto Diff 02/05/2011 [facility] White Blood Count 6.6 CUMM 4.8- 10.8 [phone] Red Cell Count 4.69 CUMM 4.6-6.2 Hemoglobin 15.6 g/dL 14.0-18.0 Hematocrit 45 % 42-52 Mean Corpuscular Volume 96 um3 High 80-94 Mean Corpuscular Hemoglob 33 pg High 27-31 Mean Corpuscular HGB Cone 35 g/dL 32-36 Redcell Distribution WDTH 13 % 10.5-15 Platelet Count 217 CUMM 150-450 Mean Platelet Volume 10.2 um3 7.4-10.4 18 Laboratory test finding 02/05/2011 [facility] TSH 1.57 MIU/ML 0.34- 5.60 [phone] Comp Metabolic Panel 02/05/2011 [facility] Sodium 139 mmol/L 135- 145 [phone] Potassium 4.1 mmol/L 3.5-5.0 Chloride 104 mmol/L 101-111 Co2 (Carbon Dioxide) 26.0 mmol/L 22-32 Anion Gap 9.0 mmol/L 2-11 19 Glucose 80 mg/dL 70-100 BUN 10 mg/dL 6-24 Creatinine 0.9 mg/dL 0.50-1.40 One Over Creatinine 1.11 BUN/Creatinine Ratio 11.1 8-20 Calcium 9.6 mg/dL 8.1-9.9 Total Protein 6.7 GM/DL 6.2-8.1 Albumin 4.2 GM/DL 3.6-5.4 Globulin 2.5 GM/DL 2-4 Albumin/Globulin Ratio 1.7 1-3 Bilirubin Total 0.8 mg/dL 0.4-1.5 20 Alkaline Phosphatase 71 U/L 39-117 Alt (SGPT) 70 U/L High 17-63 Ast (Sgot) 48 U/L High 12-42 eGFR Non- 98.4 > 60 eGFR 126.6 > 60 21 Urinalysis 02/05/2011 [facility] Ua Color YELLOW Yellow [phone] Appearance-Urine CLEAR Clear Specific [place]-Ur 1.020 1.010-1.030 Esterase-Urine NEGATIVE Negative Nitrite NEGATIVE Negative [id number] NEGATIVE Negative Protein-Urine TRACE Abnormal Negative PH-Urine 7.0 5-9 Blood-Urine NEGATIVE Negative Ketones-Urine NEGATIVE Negative Bilirubin-Ur NEGATIVE Negative Glucose-Urine NEGATIVE Negative 1 SEE RESULT BELOW Name: PHILLIP CHARLES : [address]: Navin Ovalles MD Acct: [id number] Unit: [id number] AGE: 37 Location: [facility] Re02/22/18 SEX: M Status: REG REF SPEC: [id number] VICKEY: 02/22/18 [facility] DR: Navin Ovalles MD REQ: [id number] RECD: 02/23/18 STATUS: COMP _ SOURCE: STOOL SPDESC: ORDERED: C. diff PCR/S, Stool Culture/R, Fecal Lactoferr/R, O P: Giar/Crypt/ R Procedure Result Reported Site Stool Culture Final 02/25/18- 1048 ML Result No enteric pathogens isolated Testing for Salmonella, Shigella, Aeromonas, Plesiomonas, Yersinia and Campylobacter are included in a Stool Culture. Vibrio spp not routinely tested for in a stool culture. If testing is desired, please request specifically when placing test order. Sensitivities not routinely performed on stool isolates, as antibiotics may prolong the carriage rate of bacteria. Please contact the microbiology lab if sensitivities are required. Stool Specimen Description Final 02/23/18- 1115 ML Stool Color Brown Stool Form Nonformed Stool Consistency Soft Shiga Toxin 1 2 Final 02/24/18- 1052 ML Organism 1 Negative Shiga Toxin 1 2 Immunochromatographic Assay C. difficile PCR Final 02/23/18- 1220 ML Organism 1 027 Presumptive NEGATIVE Organism 2 Toxigenic C.diff NEGATIVE Fecal Lactoferrin (Stool WBC) Final 02/23/18- 1503 ML CONTINUED ON NEXT PAGE DEPARTMENT OF PATHOLOGY, [address] [place] [address] Dwayne Salazar M.D. Director [facility] # [id number] Patient: PHILLIP CHARLES [id number] (Continued) Specimen: [id number] Collected: 02/22/18-2129 Received: 02/23/18-1037 (Continued) Procedure Result Reported Site Fecal Lactoferrin (Stool WBC) Final (continued) 02/23/18- 1503 Fecal Lactoferrin Negative by Immunoassay O P: Giardia/Cryptospor Screen Final 02/24/18- 1050 ML Organism 1 Neg Cryptosporidium/Giardia Giardia and cryptosporidium antigen testing performed by enzyme immunoassay. If patient is immunocompromised or has traveled to or is from a developing country, a full ova and parasite exam with microscopic (OPMIC) is recommended. All samples will be held 21 days in case full ova and parasite testing is requested. Contact the Microbiology Department at [phone]. TEST LIMITATIONS: As with all diagnostic procedures, the results obtained should be used in conjunction with other clinical information available the physician, including confirmation by another method. Negative results can occur in samples containing antigen below lower limits of detection of the assay. One negative specimen does not rule out the possibility of a parasitic infection. To improve detection it is recommended that three specimens be collected on separate days over a period of not more than seven days. The use of colonic washes, aspirates or other diluted sample types has not been established and could affect the performance of the assay. Stool samples contaminated with an oily or particulate base (eg. Barium, mineral oil etc.) could interfere with the test and are not recommended. * ML - Main Lab . END OF REPORT DEPARTMENT OF PATHOLOGY, [address] [place] [address] Dwayne Salazar M.D. Director [facility] # [id number] 2 Because ethnic data is not always readily available, this report includes an eGFR for both -Americans and non- Americans. The National Kidney Disease Education Program (NKDEP) does not endorse the use of the MDRD equation for patients that are not between the ages of 18 and 70, are , have extremes of body size, muscle mass, or nutritional status, or are non- or non-. According to the National Kidney Foundation, irrespective of diagnosis, the stage of the disease is based on the level of kidney function: Stage Description GFR(mL/min/1.73 m(2)) 1 Kidney damage with normal or decreased GFR 90 2 Kidney damage with mild decrease in GFR 60-89 3 Moderate decrease in GFR 30-59 4 Severe decrease in GFR 15-29 5 Kidney failure <15 (or dialysis) 3 Melting Supervisor: [id number] 4 Because ethnic data is not always readily available, this report includes an eGFR for both -Americans and non- Americans. The National Kidney Disease Education Program (NKDEP) does not endorse the use of the MDRD equation for patients that are not between the ages of 18 and 70, are , have extremes of body size, muscle mass, or nutritional status, or are non- or non-. According to the National Kidney Foundation, irrespective of diagnosis, the stage of the disease is based on the level of kidney function: Stage Description GFR(mL/min/1.73 m(2)) 1 Kidney damage with normal or decreased GFR 90 2 Kidney damage with mild decrease in GFR 60-89 3 Moderate decrease in GFR 30-59 4 Severe decrease in GFR 15-29 5 Kidney failure <15 (or dialysis) 5 >100 to <200 pg/mL: likely compensated congestive heart failure (CHF) 200 to 400 pg/mL: likely moderate CHF >400 pg/mL: likely moderate to severe CHF 6 Because ethnic data is not always readily available, this report includes an eGFR for both -Americans and non- Americans. The National Kidney Disease Education Program (NKDEP) does not endorse the use of the MDRD equation for patients that are not between the ages of 18 and 70, are , have extremes of body size, muscle mass, or nutritional status, or are non- or non-. According to the National Kidney Foundation, irrespective of diagnosis, the stage of the disease is based on the level of kidney function: Stage Description GFR(mL/min/1.73 m(2)) 1 Kidney damage with normal or decreased GFR 90 2 Kidney damage with mild decrease in GFR 60-89 3 Moderate decrease in GFR 30-59 4 Severe decrease in GFR 15-29 5 Kidney failure <15 (or dialysis) 7 void, clear, dark genet 8 Because ethnic data is not always readily available, this report includes an eGFR for both -Americans and non- Americans. The National Kidney Disease Education Program (NKDEP) does not endorse the use of the MDRD equation for patients that are not between the ages of 18 and 70, are , have extremes of body size, muscle mass, or nutritional status, or are non- or non-. According to the National Kidney Foundation, irrespective of diagnosis, the stage of the disease is based on the level of kidney function: Stage Description GFR(mL/min/1.73 m(2)) 1 Kidney damage with normal or decreased GFR 90 2 Kidney damage with mild decrease in GFR 60-89 3 Moderate decrease in GFR 30-59 4 Severe decrease in GFR 15-29 5 Kidney failure <15 (or dialysis) 9 Normal Range 180 to 914 Indeterminate Range 145 to 180 Deficient Range <145 10 Acute inflammation: >10.00 11 Test Performed by: [facility] [place] [address] Medical Reception: Judson Seth II, M.D., Ph.D. 12 Result in log IU/mL is Undetected. ADDITIONAL INFORMATION The quantification range of this assay is 15 to 100,000,000 IU/mL (1.18 log to 8.00 log IU/mL). Testing was performed by the SIOBHAN AmpliPrep/SIOBHAN TaqMan HCV Test, version 2.0 ([employer] Test Performed by: [facility] [place] [address] Medical Reception: Judson Seth II, M.D., Ph.D. 13 Low reactive results are indeterminate. This sample has been reflexed for additional testing. 14 RUN DATE: 05/17/14 [facility] LAB LIVE PAGE 1 RUN TIME: [address] [place] [id number] Specimen Inquiry Name: PHILLIP CHARLES : [address]: Meagan Hoffman Acct: [id number] Unit: [id number] AGE: 34 Location: [facility] Re05/14/14 SEX: M Status: DEP ER SPEC: [id number] VICKEY: 05/14/14 [facility] DR: Meagan Kumar DO REQ: [id number] RECD: 05/15/14 STATUS: BIJAL BEST DR: Navin Ovalles MD _ SOURCE: THROAT SPDESC: ORDERED: Throat Beta Str Procedure Result Verified Site Throat Beta Strep Culture Final 05/17/14- 08 ML Negative For Group A Beta Streptococcus END OF REPORT * ML=Testing performed at Main Lab DEPARTMENT OF PATHOLOGY, [address] [place] [address] Dwayne Salazar M.D. Director [facility] # [id number] 15 Wxlshs-vt-fggaup ratio is less than 1.0 Test Performed by: [facility] D[facility] of Lab Med and Pathology [address] [place] [address] Medical Reception: Colin Schaeffer III, M.D. 16 Test Performed by: [facility] Med [facility] Pathology [address] [place] [address] Medical Reception: Colin Schaeffer III, M.D. 17 This is a qualitative test. The TB antigen IU/mL value is required for documentation on certain government reporting forms (e.g., Form I-693), but this value should not be used to monitor disease progression or response to therapy. Diagnosing or excluding tuberculosis disease, and assessing the probability of LTBI, require a combination of epidemiological, historical, medical, and diagnostic findings that should be taken into account when interpreting QuantiFERON-TB results. Test Performed by: [facility] D[facility] of [facility] Med and Pathology [address] [place] [address] Medical Reception: Colin Schaeffer III, M.D. 18 Lymphopenia % 19 Anion gap measurement may be of limited value in the presence of any alkalosis, especially in a combined acid base disorder. . 20 A metabolite of Naproxen, O-desmethylnaproxen, has been shown to interfere with the [place] method for measuring total bilirubin. Samples from patients who have taken Naproxen have shown spurious elevation in total bilirubin levels. 21 Because ethnic data is not always readily available, this report includes an eGFR for both -Americans and non- Americans. The National Kidney Disease Education Program (NKDEP) does not endorse the use of the MDRD equation for patients that are not between the ages of 18 and 70, are , have extremes of body size, muscle mass, or nutritional status, or are non- or non-. According to the National Kidney Foundation, irrespective of diagnosis, the stage of the disease is based on the level of kidney function: Stage Description GFR(mL/min/1.73 m(2)) 1 Kidney damage with normal or decreased GFR 90 2 Kidney damage with mild decrease in GFR 60-89 3 Moderate decrease in GFR 30-59 4 Severe decrease in GFR 15-29 5 Kidney failure <15 (or dialysis) Procedures Date Code Description Status 09/18/2017 62112 SC/Im Injections Completed 04/17/2015 88128 X-Ray Hand Three Or More Views Completed Encounters Type Date Location Provider Dx Diagnosis Office Visit 08/03/2018 Main Office Navin Ovalles F11.20 Opioid dependence, 10:00a BladeDMukesh uncomplicated F41.9 Anxiety disorder, unspecified F31.81 Bipolar II disorder F17.210 Nicotine dependence, cigarettes, uncomplicated Office Visit 06/30/2018 3:30p Main Office Josr F11.20 Opioid dependence, Latrice Holden uncomplicated F41.9 Anxiety disorder, unspecified F31.81 Bipolar II disorder Office Visit 05/25/2018 4:30p Main Office Josr F11.20 Opioid dependence, Latrice Holden uncomplicated F41.9 Anxiety disorder, unspecified F31.81 Bipolar II disorder 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 moth exterminator (current) drug therapy Office Visit 04/13/2018 4:15p Main Office Josr F11.20 Opioid dependence, Latrice Holden uncomplicated F41.9 Anxiety disorder, unspecified Office Visit 03/10/2018 3:30p Main Office Josr F11.20 Opioid dependence, Latrice Holden uncomplicated R19.7 Diarrhea, unspecified J20.9 Acute bronchitis, unspecified Office Visit 02/08/2018 4:00p Main Office Navin Ovalles R19.7 Diarrhea , M.DMukesh unspecified F11.20 Opioid dependence, uncomplicated M54.5 Low back pain F41.9 Anxiety disorder, unspecified Office Visit 01/06/2018 3:30p Main Office Josr F11.20 Opioid dependenceNavin M.D. uncomplicated M54.5 Low back pain Z23 Encounter for immunization Office Visit 12/07/2017 4:00p Main Office Navin Ovalles M.D. M54.5 Low back pain F11.20 Opioid dependence, uncomplicated M54.32 Sciatica, left side Office Visit 11/09/2017 4:30p Main Office Josr F11.20 Opioid dependence, Latrice Holden uncomplicated Z71.51 Drug abuse counseling and surveillance of drug abuser M54.5 Low back pain M54.16 Radiculopathy, lumbar region Office Visit 10/13/2017 2:30p Main Office Josr F11.20 Opioid dependence, Latrice Holden uncomplicated Z71.51 Drug abuse counseling and surveillance of drug abuser M54.5 Low back pain M54.16 Radiculopathy, lumbar region F17.210 Nicotine dependence, cigarettes, uncomplicated Office Visit 09/18/2017 11:30a Main Office Navin Ovalles M.D. M54.5 Low back pain M54.16 Radiculopathy, lumbar region Office Visit 09/11/2017 2:45p Main Office Josr F11.20 Opioid dependence, Latrice Holden uncomplicated Z71.51 Drug abuse counseling and surveillance of drug abuser F17.210 Nicotine dependence, cigarettes, uncomplicated M25.50 Pain in unspecified joint M54.5 Low back pain Office Visit 08/10/2017 4:45p Main Office Josr M54.5 Low back pain Latrice Holden Office Visit 08/03/2017 3:30p Main Office Josr F11.20 Opioid dependenceNavin M.D. uncomplicated M25.50 Pain in unspecified joint M25.60 Stiffness of unspecified joint, not elsewhere classified F17.210 Nicotine dependence, cigarettes, uncomplicated R06.2 Wheezing Office Visit 06/26/2017 11:30a Main Office Josr F11.20 Opioid dependenceNavin M.D. uncomplicated F31.81 Bipolar II disorder Office Visit 05/29/2017 2:00p Main Office Josr F11.20 Opioid dependenceNavin M.D. uncomplicated F31.81 Bipolar II disorder 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 moth exterminator (current) drug therapy Office Visit 04/28/2017 2:30p Main Office Josr F11.20 Opioid dependenceNavin M.D. uncomplicated F31.81 Bipolar II disorder 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 moth exterminator (current) drug therapy Office Visit 03/24/2017 1:45p Main Office Josr F11.20 Opioid dependenceNavin M.D. uncomplicated F31.81 Bipolar II disorder Office Visit 02/20/2017 11:30a Main Office Josr F11.20 Opioid dependenceNavin M.D. uncomplicated F31.81 Bipolar II disorder J06.9 Acute upper respiratory infection, unspecified Office Visit 01/23/2017 11:00a Main Office Josr F11.20 Opioid dependenceNavin M.D. uncomplicated F31.81 Bipolar II disorder Office Visit 01/02/2017 4:45p Main Office Josr F11.20 Opioid dependenceNavin M.D. uncomplicated I87.2 Venous insufficiency (chronic) (peripheral) F34.1 Dysthymic disorder Office Visit 12/25/2016 3:40p Main Office Emily Montgomery R60.0 Localized edema R21 Rash and other nonspecific skin eruption Z23 Encounter for immunization Z41.8 Encntr for oth proc for purpose oth [facility] Office Visit 12/03/2016 3:45p Main Office Josr F11.20 Opioid Navin fenton M.D. uncomplicated D64.9 Anemia, unspecified I87.2 Venous insufficiency (chronic) (peripheral) F34.1 Dysthymic disorder Z51.81 Encounter for therapeutic drug level monitoring Office Visit 10/27/2016 3:30p Main Office Avelino Ovalles1.20 Opioid dependenceNavin M.D. uncomplicated R60.0 Localized edema I87.2 Venous insufficiency (chronic) (peripheral) R21 Rash and other nonspecific skin eruption D64.9 Anemia, unspecified K21.9 Gastro-esophageal reflux disease without esophagitis F34.1 Dysthymic disorder Office Visit 09/26/2016 4:15p Main Office Navin Ovalles, R60.0 Localized edema M.D. F11.20 Opioid dependence, uncomplicated F34.1 Dysthymic disorder D64.9 Anemia, unspecified K21.9 Gastro-esophageal reflux disease without esophagitis Office Visit 08/26/2016 3:30p Main Office Navin Ovalles, R60.0 Localized edema M.D. F11.20 Opioid dependence, uncomplicated F34.1 Dysthymic disorder K21.9 Gastro-esophageal reflux disease without esophagitis D64.9 Anemia, unspecified Office Visit 07/28/2016 1:45p Main Office Avelino Ovalles1.20 Opioid dependenceNavin M.D. uncomplicated F34.1 Dysthymic disorder K21.9 Gastro-esophageal reflux disease without esophagitis Office Visit 06/27/2016 1:45p Main Office Avelino Ovalles1.20 Opioid dependenceNavin M.D. uncomplicated F34.1 Dysthymic disorder K59.01 Slow transit constipation K21.9 Gastro-esophageal reflux disease without esophagitis Office Visit 06/03/2016 1:45p Main Office Josr F11.20 Opioid dependence, Latrice Holden uncomplicated F34.1 Dysthymic disorder B08.8 Oth viral infections with skin and mucous membrane lesions Office Visit 05/02/2016 3:00p Main Office Josr F11.20 Opioid dependence, Latrice Holden uncomplicated F34.1 Dysthymic disorder F41.9 Anxiety disorder, unspecified Office Visit 04/04/2016 4:00p Main Office Josr F11.20 Opioid dependence, Latrice Holden uncomplicated F41.9 Anxiety disorder, unspecified F34.1 Dysthymic disorder R12 Heartburn Z23 Encounter for immunization Z41.8 Encntr for oth proc for purpose oth [facility] Office Visit 02/27/2016 4:45p Main Office Navin Ovalles F34.1 Dysthymic disorder Latrice F41.9 Anxiety disorder, unspecified F11.20 Opioid dependence, uncomplicated R12 Heartburn Z71.89 Other specified counseling Office Visit 01/25/2016 4:15p Main Office Navin Ovalles M.D. R12 Heartburn F34.1 Dysthymic disorder F41.9 Anxiety disorder, unspecified F11.20 Opioid dependence, uncomplicated Office Visit 12/19/2015 3:45p Main Office Navin Ovalles F34.1 Dysthymic disorder Latrice F41.9 Anxiety disorder, unspecified F11.20 Opioid dependence, uncomplicated M25.50 Pain in unspecified joint Office Visit 11/20/2015 4:45p Main Office Navin Ovalles F34.1 Dysthymic disorder BladeDMukesh F41.9 Anxiety disorder, unspecified F11.20 Opioid dependence, uncomplicated Office Visit 10/22/2015 4:15p Main Office Navin Ovalles F34.1 Dysthymic disorder BladeDMukesh F41.9 Anxiety disorder, unspecified F11.20 Opioid dependence, uncomplicated Office Visit 09/19/2015 9:30a Main Office Navin Ovalles F34.1 Dysthymic disorder BladeDMukesh F41.9 Anxiety disorder, unspecified F11.20 Opioid dependence, uncomplicated Office Visit 08/21/2015 12:00p Main Office Josr F11.20 Opioid dependence, Latrice Holden uncomplicated F34.1 Dysthymic disorder F41.9 Anxiety disorder, unspecified Office Visit 07/18/2015 11:00a Main Office Josr F11.20 Opioid dependence, Latrice Holden uncomplicated F34.1 Dysthymic disorder F41.9 Anxiety disorder, unspecified M25.50 Pain in unspecified joint Z71.51 Drug abuse counseling and surveillance of drug abuser Office Visit 06/20/2015 11:15a Main Office Josr F11.20 Opioid dependence, Latrice Holden uncomplicated F34.1 Dysthymic disorder F41.9 Anxiety disorder, unspecified M25.50 Pain in unspecified joint K59.01 Slow transit constipation Office Visit 05/15/2015 9:30a Main Office Josr F11.20 Opioid dependence, Latrice Holden uncomplicated K59.01 Slow transit constipation M25.50 Pain in unspecified joint F34.1 Dysthymic disorder F41.9 Anxiety disorder, unspecified Office Visit 04/17/2015 9:45a Main Office Josr F11.20 Opioid dependence, Latrice Holden uncomplicated R70.0 Elevated erythrocyte sedimentation rate M79.642 Pain in left hand Z23 Encounter for immunization M79.641 Pain in right hand M79.643 Pain in unspecified hand Office Visit 03/20/2015 11:00a Main Office Josr F11.20 Opioid dependence, Latrice Holden uncomplicated F34.1 Dysthymic disorder M25.50 Pain in unspecified joint K59.01 Slow transit constipation Z71.89 Other specified counseling S20.469A Insect bite (nonvenomous) of unsp back wall of thorax, init Office Visit 02/20/2015 11:30a Main Office Josr F11.20 Opioid dependence, Latrice Holden uncomplicated M25.50 Pain in unspecified joint Office Visit 01/23/2015 11:00a Main Office Josr F11.20 Opioid dependence, Latrice Holden uncomplicated F34.1 Dysthymic disorder F41.9 Anxiety disorder, unspecified M25.50 Pain in unspecified joint Office Visit 12/27/2014 2:30p Main Office Navin Ovalles, 304.00 Drug Dependence M.D. Opioid Type Unspec 300.4 Dysthymic Disorder 300.00 Anxiety State Unspec 719.49 Pain Joint Multiple Sites Office Visit 11/27/2014 10:45a Main Office Navin Ovalles, 304.00 Drug Dependence M.D. Opioid Type Unspec 300.4 Dysthymic Disorder 300.00 Anxiety State Unspec Office Visit 10/25/2014 8:55a Main Office Navin Ovalles, 304.00 Drug Dependence M.D. Opioid Type Unspec 300.4 Dysthymic Disorder 300.00 Anxiety State Unspec Office Visit 09/25/2014 9:15a Main Office Navin Ovalles 304.00 Drug Dependence M.D. Opioid Type Unspec 300.4 Dysthymic Disorder 300.00 Anxiety State Unspec Office Visit 08/28/2014 1:15p Main Office Navin Ovalles 304.00 Drug Dependence M.D. Opioid Type Unspec Office Visit 07/31/2014 2:30p Main Office Navin Ovalles, 304.00 Drug Dependence M.D. Opioid Type Unspec Office Visit 06/28/2014 10:15a Main Office Navin Ovalles, 304.00 Drug Dependence M.D. Opioid Type Unspec 300.4 Dysthymic Disorder 300.00 Anxiety State Unspec V75.9 Screening Examination Infectious Disease Unspec Office Visit 05/31/2014 11:30a Main Office Navin Ovalles, 304.00 Drug Dependence M.D. Opioid Type Unspec 300.4 Dysthymic Disorder 300.00 Anxiety State Unspec 719.49 Pain Joint Multiple Sites V75.9 Screening Examination Infectious Disease Unspec Office Visit 05/02/2014 11:15a Main Office Navin Ovalles 304.00 Drug Dependence M.D. Opioid Type Unspec 719.49 Pain Joint Multiple Sites Office Visit 03/31/2014 2:45p Main Office Navin Ovalles 304.00 Drug Dependence M.D. Opioid Type Unspec 300.4 Dysthymic Disorder 300.00 Anxiety State Unspec 787.91 Diarrhea Office Visit 03/17/2014 4:15p Main Office Navin Ovalles 304.00 Drug Dependence M.D. Opioid Type Unspec 300.4 Dysthymic Disorder 300.00 Anxiety State Unspec 787.91 Diarrhea Office Visit 03/03/2014 2:45p Main Office Navin Ovalles, 304.00 Drug Dependence M.D. Opioid Type Unspec 300.4 Dysthymic Disorder 300.00 Anxiety State Unspec V06.1 Ewtxxbookh-Zqkddkn-Sxfdxuuh Combined (DTaP) V04.81 Need For Prophylactic Vaccination & Inoculation/Influenza V07.2 Prophylactic Immunotherapy V58.83 Encounter For Therapeutic Drug Monitoring Office Visit 02/17/2014 3:00p Main Office Navin Ovalles, 304.00 Drug Dependence M.D. Opioid Type Unspec Office Visit 02/08/2014 3:30p Main Office Navin Ovalles, 300.4 Dysthymic Disorder M.D. 300.00 Anxiety State Unspec 304.00 Drug Dependence Opioid Type Unspec V58.83 Encounter For Therapeutic Drug Monitoring Plan of Treatment Future Appointment(s):09/03/2018 11:00 am - Navin Ovalles M.D. at [facility]/03/2018 - Navin Ovalles M.D.F11.20 Opioid dependence, uncomplicatedFollow up:RTO 1 prkoiJ90.9 Anxiety disorder, lmecvqyzjwsQ12.81 Bipolar II vtztkvzhR32.210 Nicotine dependence, cigarettes, uncomplicatedComments:Encouraged complete abstinence from smoking. Continue using nicotine gum. Discussed potential roles of acupuncture and hypnosis.
[2018-09-01 19:22] VITALS: BP 140/77
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
== END 2018-09-01 19:53 | disposition home or self-care (01) ==
LOC: UCEAST 16:28
DX: S39.012A Strain of muscle, fascia and tendon of lower back, initial encounter (principal); X50.1XXA Overexertion from prolonged static or awkward postures, initial encounter; Y93.H1 Activity, digging, shoveling and raking; Y92.096 Garden or yard of other non-institutional residence as the place of occurrence of the external cause; M62.830 Muscle spasm of back; R03.0 Elevated blood-pressure reading, without diagnosis of hypertension; G89.29 Other chronic pain; M54.9 Dorsalgia, unspecified; M51.36 Other intervertebral disc degeneration, lumbar region; M51.26 Other intervertebral disc displacement, lumbar region; F17.210 Nicotine dependence, cigarettes, uncomplicated
CPT/HCPCS: 99212; G0463

== ENCOUNTER 2019-06-12 14:26 | Emergency (ER) | payer OTHER ==
--- OUTSIDE RECORDS SUMMARY | 2019-06-12 14:53 | XMS REPORT | Continuity of Care Document ---
:1980 External Reference #:[id number] Author Name Navin Ovalles M.D. Address [address] [facility] [address] [place] [address] Care Team Providers Name Role Phone HCP/LW on file Care Team Information Canine Service Instructor Trainer Unavailable Pain Clinic - Pain Medicine Care Team Information Canine Service Instructor Trainer [phone] Problems Active Problems Provider Date Opioid dependence Navin Ovalles M.D. Onset: 03/03/2014 Dysthymia Navin Ovalles M.D. Onset: 03/03/2014 Anxiety state Navin Ovalles M.D. Onset: 03/03/2014 Opioid dependence, uncomplicated Navin Ovalles M.D. Onset: 01/23/2015 Dysthymic disorder Navin Ovalles M.D. Onset: 01/23/2015 Bipolar disorder Navin Ovalles M.D. Onset: 01/23/2017 Low back pain Navin Ovalles M.D. Onset: 02/08/2018 Social History Type Date Description Comments Sex Unknown Tobacco Use Reviewed: current cigarette smoker 1/2 ppd; at peak 02/08/18 smoked ~1.5ppd ETOH Use Denies alcohol use Recreational Drug Use Denies Drug Use Tobacco Use Reviewed: Patient is a current 09/03/18 smoker, smokes every day Smoking Status Reviewed: Patient is a current 09/03/18 smoker, smokes every day Exercise Type/Frequency Exercises rarely Seat Belt/Car Seat Seat Belt Use - Yes Allergies, Adverse Reactions, Alerts Description No Known Drug Allergies Medications Active Medications SIG Qnty Indications Ordering Date Provider Methylphenidate 1 tab by mouth 30tabs F90.0 Navin Ovalles, 05/20/2019 Hydrochloride ER in the morning; M.D. 18mg for Tablets ER attention/jamila ntration Ibuprofen take one tablet 90tabs Sharon4.Navin Brown, 05/20/2019 800mg Tablets by mouth every M.D. 8 hours as needed for back pain; take with food Baclofen 1-2 tabs by 60tabs Navin Lagunas, 12/29/2018 10mg Tablets mouth up to M.D. 3x/day, as needed for muscle spasms in back Gabapentin Take 1 And 1/2 120tabs F41.9 Perry Avril L, 05/25/2018 800mg Tablets Tablets By MD Mouth In The Morning And Evening And 1 Tab In Mid Day For Anxiety G89.4 M54.Matias Suboxone 1 by mouth 2x/day; 60units F11.20 Navin Ovalles, 10/12/2017 8-2mg Film suboxone prescriber# Latrice [id number]; rx due 06/02/19 History Medications PT For Low Back Pain please evaluate Bobbi Ovalles, 03/09/2019 - and Navin kirkland M.D. 04/14/2019 modalities as needed, instruct in hep PT For Low Back Pain please evaluate Bobbi Ovalles, 02/02/2019 - and Navin kirkland M.D. 03/09/2019 modalities as needed, instruct in hep Methylprednisolone use as directed 1units Bobbi Ovalles, 12/29/2018 - 4mg TBPK on package Latrice Holden 02/01/2019 Medications Administered in Office Medication SIG Qnty Indications Ordering Provider Date Toradol 15MG. Lulu Aguilar PA 12/29/2018 Injection SC/Im Injections Lulu Aguilar PA 12/29/2018 Injection Toradol 15MG. Navin Ovalles M.D. 09/18/2017 Injection SC/Im Injections Navin Ovalles M.D. 09/18/2017 Injection Immunizations CPT Code Status Date Vaccine Lot # [id number] Given 02/02/2019 Influenza Virus Vaccine, Quadrivalent, Split, [id number] Preservative Free 53432 Given 01/06/2018 Influenza Virus Vaccine, Quadrivalent, Split, [id number] Preservative Free 55491 Given 12/25/2016 Influenza Virus Vaccine, Quadrivalent, Split, [id number] Preservative Free 72580 Given 04/04/2016 Influenza Virus Vaccine, Quadrivalent, Split, [id number] Preservative Free 26299 Given 04/17/2015 Influenza Virus Vaccine, Quadrivalent, Split, [id number] Preservative Free 88073 Given 03/03/2014 Adacel or Boostrix, TDaP [id number] 09786 Given 03/03/2014 Flu, Split Virus [id number] Refused 02/27/2016 Influenza Virus Vaccine, Quadrivalent, Split, Preservative Free Vital Signs Date Vital Result Comment 05/20/2019 2:43pm BP Systolic 134 mmHg BP Diastolic 70 mmHg Weight 275.00 lb w/boots 04/15/2019 1:53pm BP Systolic 110 mmHg BP Diastolic 74 mmHg Weight 272.00 lb w/shoes Results Test Acquired Date Facility Test Result H/L Range Note Laboratory test 04/15/2019 [facility] TSH 3.62 Normal 0.34-5.60 1, 2 finding [phone] (Thyroid mcIU/mL Stim Horm) 1 [id number] 2 [id number] Procedures Date Code Description Status 12/29/2018 08336 SC/Im Injections Completed Medical Devices Description No Information Available Encounters Type Date Location Provider Dx Diagnosis Office Visit 05/20/2019 Main Office Navin Ovalles, F11.20 Opioid dependence, 2:00p M.DMukesh uncomplicated M54.5 Low back pain F41.9 Anxiety disorder, unspecified F31.81 Bipolar II disorder F90.0 Attn-defct hyperactivity disorder, predom inattentive type Office Visit 04/15/2019 1:30p Main Office Josr F11.20 Opioid dependence, Latrice Holden uncomplicated F41.9 Anxiety disorder, unspecified F31.81 Bipolar II disorder R63.5 Abnormal weight gain M54.5 Low back pain Office Visit 03/09/2019 11:00a Main Office Navin Ovalles M.D. M54.5 Low back pain F11.20 Opioid dependence, uncomplicated F41.9 Anxiety disorder, unspecified F31.81 Bipolar II disorder F17.210 Nicotine dependence, cigarettes, uncomplicated Z68.34 Body mass index (BMI) 34.0-34.9, adult Office Visit 02/02/2019 11:45a Main Office Navin Ovalles M.D. M54.5 Low back pain F11.20 Opioid dependence, uncomplicated F41.9 Anxiety disorder, unspecified F31.81 Bipolar II disorder Z23 Encounter for immunization Office Visit 12/31/2018 2:15p Main Office Navin Ovalles M.D. M54.5 Low back pain F11.20 Opioid dependence, uncomplicated F41.9 Anxiety disorder, unspecified F31.81 Bipolar II disorder F90.0 Attn-defct hyperactivity disorder, predom inattentive type Office Visit 12/29/2018 11:40a Main Office Lulu Aguilar PA M54.5 Low back pain M62.830 Muscle spasm of back Assessments Date Code Description Provider 05/20/2019 F11.20 Opioid dependence, uncomplicated Navin Ovalles M.D. 05/20/2019 M54.5 Low back pain Navin Ovalles M.D. 05/20/2019 F41.9 Anxiety disorder, unspecified Navin Ovalles M.D. 05/20/2019 F31.81 Bipolar II disorder Navin Ovalles M.D. 05/20/2019 F90.0 Attention-deficit hyperactivity disorder, Navin Ovalles M.D. predominantly inattentive type 04/15/2019 F11.20 Opioid dependence, uncomplicated Navin Ovalles M.D. 04/15/2019 F41.9 Anxiety disorder, unspecified Navin Ovalles M.D. 04/15/2019 F31.81 Bipolar II disorder Navin Ovalles M.D. 04/15/2019 R63.5 Abnormal weight gain Navin Ovalles M.D. 04/15/2019 M54.5 Low back pain Navin Ovalles M.D. 03/09/2019 M54.5 Low back pain Navin Ovalles M.D. 03/09/2019 F11.20 Opioid dependence, uncomplicated Navin Ovalles M.D. 03/09/2019 F41.9 Anxiety disorder, unspecified Navin Ovalles M.D. 03/09/2019 F31.81 Bipolar II disorder Navin Ovalles M.D. 03/09/2019 F17.210 Nicotine dependence, cigarettes, Navin Ovalles M.D. uncomplicated 03/09/2019 Z68.34 Body mass index (BMI) 34.0-34.9, adult Navin Ovalles M.D. 02/02/2019 M54.5 Low back pain Navin Ovalles M.D. 02/02/2019 F11.20 Opioid dependence, uncomplicated Navin Ovalles M.D. 02/02/2019 F41.9 Anxiety disorder, unspecified Navin Ovalles M.D. 02/02/2019 F31.81 Bipolar II disorder Navin Ovalles M.D. 02/02/2019 Z23 Encounter for immunization Navin Ovalles M.D. 12/31/2018 M54.5 Low back pain Navin Ovalles M.D. 12/31/2018 F11.20 Opioid dependence, uncomplicated Navin Ovalles M.D. 12/31/2018 F41.9 Anxiety disorder, unspecified Navin Ovalles M.D. 12/31/2018 F31.81 Bipolar II disorder Navin Ovalles M.D. 12/31/2018 F90.0 Attention-deficit hyperactivity disorder, Navin Ovalles M.D. predominantly inattentive type 12/29/2018 M54.5 Low back pain Lulu Aguilar PA 12/29/2018 M62.830 Muscle spasm of back Lulu Aguilar PA Plan of Treatment 05/20/2019 - Navin Ovalles M.D.F11.20 Opioid dependence, uncomplicatedFollow up:RTO 1 month w/ Adult ADHD Self report scale (ASRS-v1.1)M54.5 Low back painNew Medication:Ibuprofen 800 mg - take one tablet by mouth every 8 hours as needed for back pain; take with foodF41.9 Anxiety disorder, lwqkvvpgfvhA86.81 Bipolar II disorderComments:Await response to Tx of ADHD then mlpfpsxxQ87.0 Attention-deficit hyperactivity disorder, predominantly inattentive typeNew Medication:Methylphenidate Hydrochloride ER 18 mg - 1 tab by mouth in the morning; for attention/concentration Functional Status Description No Information Available Mental Status Description No Information Available Referrals Description No Information Available
--- OUTSIDE RECORDS SUMMARY | 2019-06-12 14:53 | XMS REPORT | Continuity of Care Document ---
:1980 External Reference #:[id number] Author Name Navin Ovalles M.D. Address [address] [facility] [address] [place] [address] Care Team Providers Name Role Phone HCP/LW on file Care Team Information Extension Division Director Unavailable Pain [facility] - Pain Medicine Care Team Information Extension Division Director [phone] Problems Active Problems Provider Date Opioid dependence [...] Medications SIG Qnty Indications Ordering Provider Date Baclofen 1-2 tabs by 60tabs M54.5 Navin Ovalles, 12/29/2018 10mg Tablets mouth up to M.D. 3x/day, as needed for muscle spasms in back Gabapentin take 1 and 1/2 120tabs F41.9 Navin Ovalles, 05/25/2018 800mg tablets by mouth M.D. Tablets in the morning and evening and 1 tab in mid day for anxiety G89.4 M54.5 Suboxone 1 by mouth 2x/day; 60units F11.20 Navin Ovalles, 10/12/2017 8-2mg Film suboxone prescriberEj Pollard [id number]; rx due 05/03/19 History Medications PT For Low Back Pain please evaluate Bobbi Ovalles, 03/09/2019 - and Navin kirkland M.D. 04/14/2019 modalities as needed, instruct in hep PT For Low Back Pain please evaluate Bobbi Ovalles, 02/02/2019 - and Navin kirkland M.D. 03/09/2019 modalities as needed, instruct in hep Methylprednisolone use as directed 1units M54.Matias Ovalles, 12/29/2018 - 4mg TBPK on package Latrice Holden 02/01/2019 Medications Administered in Office Medication SIG Qnty Indications Ordering Provider Date Toradol 15MG. Lulu Aguilar PA 12/29/2018 Injection SC/Im Injections Lulu Aguilar PA 12/29/2018 Injection Toradol 15MG. Navin Ovalles M.D. 09/18/2017 Injection SC/Im Injections Navin Ovalles M.D. 09/18/2017 Injection Immunizations CPT Code Status Date Vaccine Lot # [id number] Given 02/02/2019 Influenza Virus Vaccine, Quadrivalent, Split, [id number] Preservative Free 61454 Given 01/06/2018 Influenza Virus Vaccine, Quadrivalent, Split, [id number] Preservative Free 90740 Given 12/25/2016 Influenza Virus Vaccine, Quadrivalent, Split, [id number] Preservative Free 65031 Given 04/04/2016 Influenza Virus Vaccine, Quadrivalent, Split, [id number] Preservative Free 84908 Given 04/17/2015 Influenza Virus Vaccine, Quadrivalent, Split, [id number] Preservative Free 29594 Given 03/03/2014 Adacel or Boostrix, TDaP [id number] 53003 Given 03/03/2014 Flu, Split Virus [id number] 80725 Refused 02/27/2016 Influenza Virus Vaccine, Quadrivalent, Split, Preservative Free Vital Signs Date Vital Result Comment 04/15/2019 1:53pm BP Systolic 110 mmHg BP Diastolic 74 mmHg Weight 272.00 lb w/shoes 03/09/2019 11:02am BP Systolic 124 mmHg BP Diastolic 82 mmHg Height 73.75 inches 6'1.75" Weight 264.00 lb BMI (Body Mass Index) 34.1 kg/m2 Results Test Acquired Date Facility Test Result H/L Range Note Urine Drug Screen Inhouse 11/10/2018 In House [facility] Cocaine - Ua Opiates - Ua Amphetamines - Urine Methanphetamines - Urine Benzodiazepines QN [place] - Urine Oxycodone QL - Procedures Date Code Description Status 12/29/2018 31969 SC/Im Injections Completed Medical Devices Description No Information Available Encounters Type Date Location Provider Dx Diagnosis Office Visit 04/15/2019 Main Office Navin Ovalles, F11.20 Opioid dependence, 1:30p M.DMukesh uncomplicated F41.9 Anxiety disorder, unspecified F31.81 Bipolar [...] back pain M62.830 Muscle spasm of back Office Visit 11/10/2018 4:30p Main Office Josr F11.20 Opioid dependence, Latrice Holden F41.9 Anxiety disorder, unspecified F31.81 Bipolar II disorder Assessments Date Code Description Provider 04/15/2019 F11.20 Opioid dependence, uncomplicated Navin Ovalles [...] Muscle spasm of back Lulu Aguilar PA 11/10/2018 F11.20 Opioid dependence, uncomplicated Navin Ovalles M.D. 11/10/2018 F41.9 Anxiety disorder, unspecified Navin Ovalles M.D. 11/10/2018 F31.81 Bipolar II disorder Navin Ovalles M.D. Plan of Treatment 04/15/2019 - Navin Ovalles M.D.F11.20 Opioid dependence, uncomplicatedFollow up:RTO 1 poprvR00.9 Anxiety disorder, zdjnylhptsqY70.81 Bipolar II dtypdxlpU51.5 Abnormal weight gainM54.5 Low back painComments:Doing much better Functional Status Description No Information Available Mental Status Description No Information Available Referrals Description No Information Available
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
[2019-06-12 15:06] VITALS: BP 155/87
== END 2019-06-12 15:00 | disposition short-term general hospital (02) ==
LOC: UCEAST 14:26
DX: R07.9 Chest pain, unspecified (principal); R53.83 Other fatigue; F17.210 Nicotine dependence, cigarettes, uncomplicated; X50.9XXA Other and unspecified overexertion or strenuous movements or postures, initial encounter; Y93.29 Activity, other involving ice and snow; Y92.9 Unspecified place or not applicable
CPT/HCPCS: 93005; 99213; G0463

== ENCOUNTER 2019-06-12 15:31 | Emergency (ER) | payer OTHER ==
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
[2019-06-12 16:20] LABS: ABS Eosinophils 0.1 10^3/ul (0-0.6); ABS Monocytes 0.3 10^3/ul (0-0.8); ABS Neutrophils 6.2 10^3/ul (1.5-7.7); Eosinophil % 0.8 %; Hematocrit 40 % (42-52); Hemoglobin 13.9 g/dL (14.0-18.0); Lymphocyte % 13.4 %; Mean Corpuscular HGB Conc 35 g/dL (31-36); Mean Corpuscular Hemoglobin 32 pg (27-31); Mean Corpuscular Volume 90 fL (80-94); Mean Platelet Volume 8.7 fL (7.4-10.4); Nucleated Red Blood Cells % 0.1; Platelet Count 232 10^3/uL (150-450); Red Blood Count 4.41 10^6 /uL (4.18-5.48); Red Cell Distribution Width 13 % (10-15); White Blood Count 7.6 10^3/uL (3.5-10.8)
[2019-06-12 16:35] LABS: Albumin 4.4 g/dL (3.2-5.2); Anion Gap 6 mmol/L (2-11); CO2 Carbon Dioxide 28 mmol/L (22-32); Calcium 9.6 mg/dL (8.6-10.3); Chloride 106 mmol/L (101-111); Magnesium 1.9 mg/dL (1.9-2.7); Sodium 140 mmol/L (135-145)
[2019-06-12] MEDS ORDERED: Al Hydrox/Mg Hydrox/Simet LIQ* 30 ML UDC PO ONE (16:39)
[2019-06-12 16:41] LABS: ALT 34 U/L (7-52); AST 25 U/L (13-39); Albumin/Globulin Ratio 1.8 (1-3); Alkaline Phosphatase 84 U/L (34-104); BUN/Creatinine Ratio 14.1 (8-20); Blood Urea Nitrogen 12 mg/dL (6-24); Creatine Kinase 188 U/L (10-223); EGFR African American 120.8 (>60); EGFR Non-African American 99.8 (>60); Globulin 2.5 g/dL (2-4); Glucose 109 mg/dL (70-100); Total Protein 6.9 g/dL (6.4-8.9)
[2019-06-12 18:26] VITALS: BP 149/77
== END 2019-06-12 18:26 | disposition home or self-care (01) ==
LOC: ED 15:31
DX: R10.13 Epigastric pain (principal); R07.9 Chest pain, unspecified; F17.210 Nicotine dependence, cigarettes, uncomplicated
CPT/HCPCS: 36415; 71045; 80053; 82550; 83690; 83735; 84484; 85025; 93005; 99284; A9270-GY

== ENCOUNTER 2019-06-13 20:36 | Emergency (ER) | payer OTHER ==
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
[2019-06-13] MEDS ORDERED: Lidocaine 2% VISCOUS* 15 ML UDC PO ONE (21:14)
[2019-06-13] MEDS ORDERED: Al Hydrox/Mg Hydrox/Simet LIQ* 30 ML UDC PO ONE (21:14)
[2019-06-13] MEDS ORDERED: Famotidine TAB* 20 MG PO ONE (21:44)
[2019-06-13 21:58] VITALS: BP 156/92
== END 2019-06-13 21:57 | disposition home or self-care (01) ==
LOC: ED 20:36
DX: R07.89 Other chest pain (principal); Z79.82 Long term (current) use of aspirin; F17.210 Nicotine dependence, cigarettes, uncomplicated
CPT/HCPCS: 36415; 84484; 93005; 99283; A9270-GY